=== PATIENT | female | born 1990 | race Caucasian/White ===

== ENCOUNTER → 2024-03-29 20:26 | Outpatient (REF) | payer OTHER, SELFPAY | LOC: MRI 20:26 | PROVIDERS: ATTENDING PHYSICIAN Physician Assistant Surgical; FAMILY PHYSICIAN Family Medicine | DX: M41.86 Other forms of scoliosis, lumbar region (principal); M54.16 Radiculopathy, lumbar region; M54.50 Low back pain, unspecified | CPT/HCPCS: 72148 ==